=== PATIENT | male | born 1985 | race African-American/Black ===

== ENCOUNTER 2016-12-17 09:44 | Emergency (ER) | payer SELFPAY ==
[2016-12-17] MEDS ORDERED: Ondansetron HCl/PF 4 MG/2 ML Vial ONE (09:53)
[2016-12-17] MEDS ORDERED: Ketorolac Tromethamine 30 MG/ML VIAL ONE (09:53)
[2016-12-17 09:59] LABS: #Basophils 0.2 thou/uL (0.0-0.2); #Lymphocytes 2.8 thou/uL (1.20-3.40); #Monocytes 1.4 thou/uL (0.11-0.59); #Neutrophils 7.1 thou/uL (1.40-6.50); %Basophils 1.3 % (0.0-1.0); %Eosinophils 0.3 % (0.0-10.0); %Lymphocytes 24.4 % (21.0-51.0); Hemoglobin 15.1 g/dL (14.0-18.0); Mean Corpuscular HGB CONC 34.6 g/dL (32.0-36.0); Mean Corpuscular Hemoglobin 31.5 pg (27.0-31.0); Mean Corpuscular Volume 90.9 fl (80.0-94.0); Mean Platelet Volume 7.8 fL (7.4-10.4); Platelet Count 266 thou/uL (130-400); Red Blood Cell (RBC) Count 4.78 mill/uL (4.70-6.10); White Blood Cell (WBC) Count 11.4 thou/uL (4.8-10.8)
[2016-12-17 10:15] LABS: ALT (SGPT) 10 U/L (8-55); AST (SGOT) 15 U/L (5-34); Albumin 4.2 g/dL (3.5-5.0); Alkaline Phosphatase 65 U/L (40-150); Anion Gap 15 mmol/L (10-20); BUN (Urea Nitrogen) 13 mg/dL (8.9-20.6); Bilirubin, Total 0.8 mg/dL (0.2-1.2); Calc. Creatinine Clearance 0 mL/min (70-130); Calcium 9.6 mg/dL (7.8-10.44); Carbon Dioxide 23 mmol/L (22-29); Chloride 103 mmol/L (98-107); Estimated GFR-MDRD 56; Globulin 3.6 g/dL (2.4-3.5); Glucose 96 mg/dL (70-105); Lipase 13 U/L (8-78); Potassium 3.6 mmol/L (3.5-5.1); Protein, Total 7.8 g/dL (6.0-8.3); Sodium 137 mmol/L (136-145)
[2016-12-17 10:31] LABS: Bacteria/HPF None Seen HPF (None Seen); Bilirubin Negative (Negative); Blood, Urine Trace (Negative); Clarity Clear (Clear); Glucose, Urine (Dipstick) Negative (Negative); Leukocyte Negative (Negative); Nitrite Negative (Negative); Protein, Urine (Dipstick) Negative (Neg-Trace); RBC/HPF 0-3 HPF (0-3); Squamous Epithelial 0-3 HPF (0-3); WBC/HPF None Seen HPF (0-3)
[2016-12-17] MEDS ORDERED: methylPREDNISolone Sod Succ/PF 125 MG/2 ML VIAL ONE (10:37)
[2016-12-17] MEDS ORDERED: Tamsulosin HCl 0.4 MG CAP PO SCH (10:45)
--- NOTE | 2016-12-17 22:39 | CT ---
CT OF THE ABDOMEN AND PELVIS WITHOUT CONTRAST: Date: 12-17-16 FINDINGS: Bilateral renal calculi are present. There is a 7 mm calculus in the mid to distal right ureter at t he mid-sacral level that is causing a moderate right hydronephrosis. No stones were imaged within th e urinary bladder. The lung bases are clear. The liver, spleen, pancreas, gallbladder, adrenal glands, and abdominal ao rta all appeared normal within the limitations of the noncontrast study. The bowel is unremarkable w ith no sign of obstruction or inflammatory change. No free air or free fluid was seen. The patient's pelvis was unremarkable with no inflammatory change, free fluid or other acute findings. IMPRESSION: 1. Bilateral renal calculi. 2. 7 mm stone in the mid to distal right ureter at the mid sacral level causing moderate right hydro nephrosis. POS: HOME
== END 2016-12-17 10:45 | disposition home or self-care (01) ==
LOC: BURERS 09:44
DX: N13.2 Hydronephrosis with renal and ureteral calculous obstruction (principal); F17.210 Nicotine dependence, cigarettes, uncomplicated
CPT/HCPCS: 36415; 74176; 80053; 81003; 81015; 83690; 85025; 96361; 96374; 96375; J1885; J2405; J2930